=== PATIENT | female | born 1945 | race Caucasian/White ===

== ENCOUNTER 2016-09-22 16:09 | Emergency (ER) | payer OTHER, BC, MEDICARE ==
[2016-09-22 17:22] LABS: ABSOLUTE EOSINOPHILS # (AUTO) 0.3 10^3/uL (0.0-0.6); ABSOLUTE LYMPHOCYTES (AUTO) 1.5 10^3/uL (0.5-4.7); ABSOLUTE MONOCYTES (AUTO) 1.2 10^3/uL (0.1-1.4); BASOPHILS % (AUTO) 0.2 % (0-2); EOSINOPHILS % (AUTO) 2.2 % (0-6); HEMATOCRIT 41.8 % (36.0-47.0); HEMOGLOBIN 13.8 g/dL (12.0-15.5); HGB HCT DIFFERENCE -0.4; LYMPHOCYTES % (AUTO) 11.3 % (13-45); MEAN CORPUSCULAR HEMOGLOBIN 28.8 pg (27.0-33.4); MEAN CORPUSCULAR HGB CONC 32.9 g/dL (32.0-36.0); MEAN CORPUSCULAR VOLUME 88 fl (80-97); RED BLOOD COUNT 4.78 10^6/uL (3.72-5.28); RED CELL DISTRIBUTION WIDTH 13.7 % (11.5-14.0); SEGMENTED NEUTROPHILS % (AUTO) 77.3 % (42-78); WHITE BLOOD COUNT 12.9 10^3/uL (4.0-10.5)
[2016-09-22 17:35] LABS: LIPASE 133.2 U/L (23-300)
[2016-09-22] MEDS ORDERED: NORMAL SALINE 1000 ML 1,000 ML IV ONE (17:35)
--- NOTE | 2016-09-22 17:35 | ER Document Report ---
ED General - General Chief Complaint: Probable Seizure Stated Complaint: POSSIBLE SEIZURE Time Seen by Provider: 09/22/16 16:47 Notes: -year-old female with hypertension presents with episode of syncope. It was abrupt. Was about an hour ago. This occurred as she was on the toilet and straining. She felt spots in her vision and her's noted her eyes dilated and she became stiff and then limp. She is unresponsive for 15, then came to normally. No jerky movements vomiting or tongue trauma. She states she has had diarrhea for 2 days and has not been drinking enough fluid, she was given Lomotil by her regular doctor. She took her blood pressure medications today. She currently has no symptoms. She denies having any palpitations chest pain or shortness of breath at the time. TRAVEL OUTSIDE OF THE [place] IN LAST 30 DAYS: No - Related Data Allergies/Adverse Reactions: codeine Allergy (Verified 09/22/16 16:25) Penicillins Allergy (Verified 09/22/16 16:25) Past Medical History - Social History Smoking Status: Never Smoker Family History: None Patient has suicidal ideation: No Patient has homicidal ideation: No Renal/ Medical History: Denies: Hx Peritoneal Dialysis Review of Systems - Review of Systems Notes: GEN: Denies fever, chills, weight loss ENT: Denies sore throat, nasal discharge, ear pain EYES: Denies blurry vision, eye pain, discharge CV: Denies chest pain, palpitations, edema RESP: Denies cough, shortness of breath, wheezing GI: Denies abdominal pain, nausea, vomiting, diarrhea MSK: Denies joint pain/swelling, edema, SKIN: Denies rash, skin lesions LYMPH: Denies swollen glands/lymph nodes NEURO: Denies headache, focal weakness or numbness, dizziness PSYCH: Denies depression, suicidal or homicidal ideation Physical Exam - Vital signs Vitals: Pulse Resp BP Pulse Ox 63 20 133/57 H 99 09/22/16 16:25 09/22/16 16:25 09/22/16 16:25 09/22/16 16:25 - Notes Notes: General: No acute distress, well-nourished Head: Atraumatic, normocephalic ENT: Mouth normal, oropharynx moist, no exudates or tonsillar enlargement Eyes: Conjunctiva normal, pupils equal, lids normal Neck: No JVD, supple, no guarding CVS: Normal rate, regular rhythm, no murmurs Resp: No resp distress, equal and normal breath sounds bilaterally GI: Nondistended, soft, no tenderness to palpation, no rebound or guarding Ext: No deformities, no edema, normal range of motion in upper and lower ext Skin: No rash, warm Lymphatic: No lymphadeopathy noted Neuro: Awake, alert. Face symmetric. Course - Re-evaluation Re-evalutation: 09/22/16 17:37 Presents with an episode of ectopy while straining for a bowel movement, in the setting of taking her BP meds and being dehydrated from diarrhea. She has not had chest pain or palpitations and her EKG is normal. She is overall very well- appearing and I think this is most likely dehydration plus Valsalva. I will hydrate her, await the results of her lab testing, and plan for discharge with holding her medications for 2 days to 3 days until she sees her primary care. - Vital Signs Vital signs: Temp Pulse Resp BP Pulse Ox 63 16 130/61 H 98 09/22/16 16:25 09/22/16 18:14 09/22/16 18:14 09/22/16 18:14 - Laboratory Result Diagrams: 09/22/16 17:04 Laboratory results interpreted by me: 09/22/16 17:04 WBC 12.9 H Lymphocytes % 11.3 L Absolute Neutrophils 10.0 H - EKG Interpretation by Id EKG shows normal: Sinus rhythm Rate: Normal - No ST or T-wave changes Discharge - Discharge Condition: Good Disposition: HOME, SELF-CARE Instructions: Dehydration ([facility]) Additional Instructions: Do not take any of your blood pressure medications until you can see her primary care doctor and get your blood pressure rechecked. Please visit your primary care in 2-3 days. Please return to the ER before that if you feel any worse or had a repeat episode of fainting.
[2016-09-22 17:50] LABS: TROPONIN I < 0.012 ng/mL
[2016-09-22 18:19] VITALS: BP 130/61
--- NOTE | 2016-09-22 23:44 | EKG REPORT ---
SEVERITY:- NORMAL ECG - SINUS RHYTHM : Confirmed by: Gabrielle Duckworth 22-Sep-2016 23:43:58
== END 2016-09-22 19:06 | disposition home or self-care (01) ==
LOC: ER 16:09
DX: R55 Syncope and collapse (principal); E86.0 Dehydration; I10 Essential (primary) hypertension; Z88.6 Allergy status to analgesic agent; Z88.0 Allergy status to penicillin
CPT/HCPCS: 93005; 99284; 36415; 82550; 83690; 85025; 84484; 83880; 93010; J7030